=== PATIENT | female | born 1985 | race Caucasian/White ===

== ENCOUNTER 2018-09-30 19:54 | Emergency (ER) | payer OTHER, MEDICAID, SELFPAY ==
[2018-09-30 20:14] VITALS: BP 122/89; PULSE 77; RESP 18; TEMP 37.1; O2SAT 97
[2018-09-30 23:00] VITALS: BP 141/81; PULSE 70; RESP 19; O2SAT 98
--- NOTE | 2018-09-30 23:04 | ED_ITS ---
HPI - Eye Problem General Chief complaint: Eye Problems Stated complaint: thinks pink eye right eye Time Seen by Provider: 09/30/18 23:03 Source: patient Mode of arrival: ambulatory Limitations: no limitations History of Present Illness HPI Narrative: Patient is a 32-year-old female here for evaluation of redness and irritation and swelling to the right eye. She does not were contacts. Does not wear glasses. No history PRK Lasix. States she has been around kids who have been diagnosed with pinkeye. Has not tried anything for symptoms prior to arrival Related Data Previous Rx's Medication Instructions Recorded erythromycin 0.5 inch EYE-RIGHT TID 3 Days #1 09/30/18 gram Allergies Allergy/AdvReac Type Severity Reaction Status Date / Time buspirone [From BuSpar] Allergy Anaphylaxis Verified 09/30/18 20:14 cephalexin [From Keflex] Allergy Anaphylaxis Verified 09/30/18 20:14 clindamycin Allergy Anaphylaxis Verified 09/30/18 20:14 cyclobenzaprine Allergy Anaphylaxis Verified 09/30/18 20:14 [From Flexeril] Penicillins Allergy Anaphylaxis Verified 09/30/18 20:14 propoxyphene [From Darvon] Allergy Anaphylaxis Verified 09/30/18 20:14 Sulfa (Sulfonamide Allergy Hallucinati Verified 09/30/18 20:14 Antibiotics) ng Review of Systems Constitutional Denies fever(s) and Denies headache(s) Eyes Reports itchy eyes Comments: Redness irritation and swelling to the right eye ENT Ears, Nose, Mouth, and Throat: Denies vertigo, Denies dizziness, Denies headache(s) and Denies epistaxis Integumentary/Breasts Comments: Redness around the right eye Neurologic Denies vertigo, Denies dizziness and Denies headache(s) Allergic/Immunologic Denies urticaria and Reports itchy eyes PFSH Medical History Healthy adult (Acute) Social History Smoking Status: Never smoker Social History Smoking Status: Never smoker Exam Initial Vital Signs Initial Vital Signs: Vital Signs Temperature 98.8 F 09/30/18 20:14 Pulse Rate 77 09/30/18 20:14 Respiratory Rate 18 09/30/18 20:14 Blood Pressure 122/89 09/30/18 20:14 Pulse Oximetry 97 09/30/18 20:14 Const General: cooperative, healthy appearing, comfortable, well developed, well groo med and No acute distress Orientation: alert, awake and oriented x3 HENMT Head: normal to inspection and normocephalic Nose: external nose normal Face and sinus: normal facial exam Mouth: oral mucosae normal Eyes Other: Left eye unremarkable. Right eye with conjunctival swelling and redness. Does have purulent drainage on the nasal aspect. Some swelling of the superior eyelid. Resp Effort & Inspection: normal respiratory effort Cardio Rate: regular rate Skin Other: No redness on the skin around the right eye Psych Appearance: grossly normal and well kempt Course Orders Ordered: Discontinued Medications Erythromycin (Erythromycin Ophth Oint) 1 applic EYE-RIGHT NOW ONE Stop: 09/30/18 23:15 Last Admin: 09/30/18 23:36 Dose: 1 applic Vital Signs - 8 hr 09/30/18 23:00 09/30/18 23:39 Pulse Rate 70 Respiratory Rate 19 Blood Pressure 124/64 Blood Pressure [Left Arm] 141/81 H Pulse Oximetry 98 MDM - Eye Problem MDM Narrative Medical decision making narrative: Patient looks well. Has a history and physical exam consistent with conjunctivitis. Will place on erythromycin ointment. She was given some here in the emergency department. Was given a prescription. She is given return precautions. She expressed understanding and agreement with plan. Discharge Plan Departure Patient Disposition: Home Clinical Impression: Conjunctivitis Qualifiers: Conjunctivitis type: acute Acute conjunctivitis type: unspecified Laterality: right Qualified Code(s): H10.31 - Unspecified acute conjunctivitis, right eye Discharge Date/Time: 09/30/18 23:40 Interventions: ED Discharge Assessment Last Done: 09/30/18 23:39 Instructions: Conjunctivitis Activity Restrictions/Additional Instructions: Be sure your washing your hands. Avoid rubbing your eye as much as possible. Call your primary doctor for follow-up. Return to the emergency department for any new symptoms Prescriptions: New erythromycin 5 mg/gram (0.5 %) ointment 0.5 inch EYE-RIGHT TID 3 Days Qty: 1 RF: 0
[2018-09-30] MEDS: ERYTHROMYCIN OPHTH 1 GM OINT 1 APPLIC EYE-RIGHT (23:36)
[2018-09-30 23:39] VITALS: BP 124/64
== END 2018-09-30 23:40 | disposition home or self-care (01) ==
PROVIDERS: Emergency Provider Emergency Medicine
DX: H10.31 Unspecified acute conjunctivitis, right eye (principal)
CPT/HCPCS: 99283

== ENCOUNTER → 2018-10-26 18:46 | Outpatient (REF) | payer OTHER, MEDICAID, SELFPAY | LOC: LAB 18:46 | PROVIDERS: Visit Provider Family Medicine | DX: A09 Infectious gastroenteritis and colitis, unspecified (principal) | CPT/HCPCS: 87045; 87899 ==